=== PATIENT | female | born 1990 | race Caucasian/White ===

== ENCOUNTER → 2016-05-26 | Outpatient (CLI) | payer BC, OTHER ==
[~2016-05-26] MED LIST: FERR325T PO; IBUP-232 PO; PREN29TA PO; SENN1TAB PO
== END ==
LOC: HPND 08:14
PROVIDERS: ATTEND Obstetrics & Gynecology
DX: O35.1XX0 Maternal care for (suspected) chromosomal abnormality in fetus, not applicable or unspecified (principal)
CPT/HCPCS: 76811

== ENCOUNTER → 2016-06-30 | Outpatient (CLI) | payer BC, OTHER | LOC: HPND 08:20 | PROVIDERS: ATTEND Obstetrics & Gynecology | DX: O35.1XX0 Maternal care for (suspected) chromosomal abnormality in fetus, not applicable or unspecified (principal) | CPT/HCPCS: 76816 ==

== ENCOUNTER 2016-07-21 00:23 | Emergency (ER) | payer OTHER ==
--- NOTE | 2016-07-21 01:26 | PD ---
HPI Chief Complaint contractions Date Seen: July 21, 2016 Time Seen: 01:15 Travel History International Travel<30 Days: No Contact w/Intl Traveler<30Days: No Known Affected Area: No History of Present Illness HPI Pt is a 25 y/o G1 with IUP at 40w6d who presents for labor check. pt reports feeling 5 or 6 strong contractions tonight, but has not been timing them. Pt denies vb, lof. + active fetus Para: 0 : 1 History Past Medical History Medical History: Denies Significant Hx Past Surgical History Narrative Surgical benign cyst removed Family History Family History: Negative Social History Alcohol Use: No Tobacco Use: No Substance Abuse: No Allergies-Medications (Allergen,Severity, Reaction): Coded Allergies: No Known Allergies (Unverified , 07/21/16) Narrative Medication PNV iron Review of Systems General / Constitutional: Weight Gain, No: Fever, Weight Loss, Chills, Other Eyes: No: Diploplia, Blurred Vision, Visual changes, Pain, Photophobia, Other HENT: No: Headaches, Vertigo, Dental Difficulties, Lightheadedness, Other Respiratory: No: Cough, Short of Breath, Wheezing, Other Gastrointestinal: Abdominal Pain Genitourinary: No: Urgency, Frequency, Dysuria, Nocturia, Hematuria, Decreased Urinary Output, Oliguria, Hesitancy, Dribbling, Incontinence, Pelvic Pain, Dyspareunia, Discharge, Menorrhagia, Vaginal Bleeding, Other Musculoskeletal: Edema Skin: No Rash, No Itching, No Dryness, No Lumps, No Change in Pigmentation, No Change in Nails, No Alopecia, No Lesions, No Breast Lumps, No Breast Tenderness , No Breast Swelling, No Other Neurologic: No: Weakness, Dizziness, Syncope, Focal Abnormalities, Coordination Problem, Headache, Slurred Speech, Seizures, Other Psychiatric: No: Anxiety, Depression, Suicidal Ideations, Disorder of Thought, Mood Disorder, Substance Abuse, Homicidal Ideation, Other Endocrine: No: Heat Intolerance, Cold Intolerance, Polydipsia, Polyuria, Other Hematologic/Lymphatic: No Easy Bruising, No Lymph Node Enlargement, No Other Physical Exam 115/78, 116, 18, 98.6 Narrative GENERAL: Well-nourished, well-developed patient. SKIN: Warm and dry. HEAD: Normocephalic and atraumatic. EYES: No scleral icterus. No injection or drainage. ENT: No nasal drainage noted. Mucous membranes pink. Airway patent. NECK: Supple, trachea midline. No JVD. CARDIOVASCULAR: Regular rate and rhythm without murmurs, gallops, or rubs. RESPIRATORY: Breath sounds equal bilaterally. No accessory muscle use. ABDOMEN/GI: Abdomen soft, non-tender, bowel sounds present, no rebound, no guarding grvid GENITOURINARY: External Genitalia: intact and normal in appearance cervix 1-2/50/-2 by RN exam Membranes: intact Uterine Contractions: [-] FHT's: Category: [1 ] Baseline: 140 Reactive: yes Variability: mod Decels: no EXTREMITIES: No cyanosis trace pedal edema BACK: Nontender without obvious deformity. No CVA tenderness. NEUROLOGICAL: Awake and alert. Motor and sensory grossly within normal limits. Five out of 5 muscle strength in all muscle groups. Normal speech. Data Data Vital Signs Reviewed: Yes MDM Medical Record Reviewed: Yes Narrative Course / MDM 25 y/o G1 with IUP at 40.6 wks with irregular contractions/false labor labor precautions and [facility]KC to see OB provider tomorrow Diagnosis Diagnosis: Primary Impression: 40 weeks gestation of Additional Impression: False labor after 37 completed weeks of gestation Disposition: DISCHARGE HOME Condition: Stable Ashleigh Carter MD July 21, 2016 01:26
[2016-07-21] MEDS ORDERED: FERR325T PO (12:29)
[2016-07-21] MEDS ORDERED: PREN29TA PO (12:29)
[2016-07-21] MEDS ORDERED: IBUP-232 PO (19:25)
[2016-07-21] MEDS ORDERED: SENN1TAB PO (19:25)
== END 2016-07-21 01:27 | disposition home or self-care (01) ==
LOC: HOBED 00:23
DX: O47.9 False labor, unspecified (principal); Z3A.40 40 weeks gestation of pregnancy
CPT/HCPCS: 59025

== ENCOUNTER 2016-07-21 10:33 | Inpatient (IN) | payer OTHER ==
[2016-07-21] VITALS (49 sets, daily range): BP systolic 73–143; BP diastolic 28–113; PULSE 79–188; RESP 18; TEMP 98–99; O2SAT 99–100
[~2016-07-21] VITALS: Ht 154.9 cm; Wt 79.4 kg
[2016-07-21] MEDS ORDERED: LACTATED RINGER'S 1000 ML INJ 1,000 ML IV PRN (11:08)
--- NOTE | 2016-07-21 11:08 | HHI.HP ---
HPI Chief Complaint Contractions Date Seen: July 21, 2016 Travel History International Travel<30 Days: No Contact w/Intl Traveler<30Days: No Known Affected Area: No History of Present Illness HPI This patient is 25-year-old at 41 weeks tomorrow patient of [address]. You who presents complaining of regular contractions that have increased through the night. Patient was here last evening and was 1-2 cm and 50% and sent home. heart rate tracing is reactive she does have some variable Decels and early decelerations with contractions, she denies leaking or bleeding. Para: 0 : 1 History Past Medical History Medical History: Denies Significant Hx Past Surgical History Surgical History: No Previous Surgery Social History Alcohol Use: No Tobacco Use: No Substance Abuse: No Allergies-Medications (Allergen,Severity, Reaction): Coded Allergies: No Known Allergies (Unverified , 07/21/16) Review of Systems General / Constitutional: No: Fever, Weight Gain, Chills, Other Eyes: No: Diploplia, Blurred Vision, Visual changes, Pain, Photophobia HENT: No: Headaches, Vertigo, Lightheadedness Cardiovascular: No: Irregular Rhythm, Chest Pain or Discomfort, Palpitations, Tachycardia, Syncope, Varicosities, Edema, Cyanosis Respiratory: No: Cough, Short of Breath, Other Gastrointestinal: Abdominal Pain, No: Nausea, Vomiting, Diarrhea Genitourinary: No: Decreased Urinary Output, Oliguria Musculoskeletal: No: Limited ROM, Weakness, Cramping, Edema, Pain Skin: No Rash, No Itching, No Dryness, No Lumps, No Change in Pigmentation, No Change in Nails, No Alopecia, No Lesions Neurologic: No: Weakness, Dizziness, Syncope, Focal Abnormalities, Coordination Problem, Headache, Slurred Speech, Seizures Psychiatric: No: Depression, Suicidal Ideations, Homicidal Ideation Endocrine: No: Heat Intolerance, Cold Intolerance, Polydipsia, Polyuria, Other Physical Exam Narrative GENERAL: Well-nourished, well-developed patient. SKIN: Warm and dry. HEAD: Normocephalic and atraumatic. EYES: No scleral icterus. No injection or drainage. ENT: No nasal drainage noted. Mucous membranes pink. Airway patent. NECK: Supple, trachea midline. No JVD. CARDIOVASCULAR: Regular rate and rhythm without murmurs, gallops, or rubs. RESPIRATORY: Breath sounds equal bilaterally. No accessory muscle use. BREASTS: Bilateral exam showed no masses , no retractions, no nipple discharge. ABDOMEN/GI: Abdomen soft, non-tender, bowel sounds present, no rebound, no guarding Gravid to [-40] weeks size Fundal Height: [-40] GENITOURINARY: External Genitalia: intact and normal in appearance BUS glands: [-] Cervix: [-] Dilatation: [5-] Effacement: [90-] Station: [-3] Presentation: [-vtx] Membranes: [intact ] Uterine Contractions: [-reg] FHT's: Category: [1-] Baseline: [-133] Reactive: [yes-] Variability: [mod-] Decels: [Positive variables and earlys-] EXTREMITIES: No cyanosis or edema. BACK: Nontender without obvious deformity. No CVA tenderness. NEUROLOGICAL: Awake and alert. Motor and sensory grossly within normal limits. Five out of 5 muscle strength in all muscle groups. Normal speech. Assessment/Plan Assessment and Plan This patient is a 25-year-old at [address] Barksdale presents with regular contractions early labor. Membranes intact she has no bleeding heart rate tracing is reactive and she is bry regularly. She has occasional variable and early deceleration with contractions but no late decelerations or ominous signs, variability is very good. Her cervix is 5 cm 90% -3 posterior with cephalic presentation. Plan to admit the patient for labor and contact her OB doctor and anticipate vaginal delivery. Jeramy Hazel II, MD July 21, 2016 11:08
[2016-07-21] MEDS ORDERED: SODIUM CHLORID 0.9% 500 ML INJ 500 ML IV PRN (11:15)
[2016-07-21] MEDS ORDERED: MINERAL OIL 10 ML VIAL TOPICAL PRN (11:15)
[2016-07-21] MEDS ORDERED: OXYTOCIN 30 UNITS-500ML PREMIX 500 ML IV ONE (11:15)
[2016-07-21] MEDS ORDERED: LIDOCAINE HCL 1% 50 ML VIAL I-DERMAL PRN (11:15)
[2016-07-21] MEDS ORDERED: CITRIC ACID-SODIUM CITRATE LIQ 30 ML UDC PO SCH (11:15)
[2016-07-21] MEDS ORDERED: LIDOCAINE HCL 1% 50 ML VIAL INFIL PRN (11:15)
[2016-07-21] MEDS ORDERED: SODIUM CHLOR 0.9% 1000 ML INJ 1,000 ML IV PRN (11:28)
[2016-07-21] MEDS ORDERED: FERR325T PO (12:29)
[2016-07-21] MEDS ORDERED: PREN29TA PO (12:29)
[2016-07-21 12:36] LABS: BACTERIA, URINE RARE /hpf; BLOOD, URINE TRACE (NEG); COMMENT (UR) CULT NOT INDICATED; CULTURE IF INDICATED CULT NOT INDICATED; GLUCOSE,URINE NEG (NEG); KETONE, URINE NEG (NEG); NITRITE,URINE NEG (NEG); PH, URINE 6.5 (5.0-8.5); SQUAMOUS EPITHELIAL CELL URINE 1 /hpf (0-5); URINE COLOR LIGHT-YELLOW (YELLW/STRAW)
[2016-07-21 12:43] LABS: BASOPHIL % 0.4 % (0.0-2.0); EOSINOPHIL # 0.1 TH/MM3 (0-0.4); EOSINOPHIL % 0.6 % (0.0-4.0); HEMATOCRIT 35.2 % (35.0-46.0); HEMO FLAGS DIFF FINAL; LYMPH % 15.3 % (9.0-44.0); LYMPHOCYTE # 1.8 TH/MM3 (1.0-4.8); MEAN CELL VOLUME 88.3 FL (80.0-100.0); MEAN CORPUSCULAR HEMOGLOBIN 30.8 PG (27.0-34.0); MEAN CORPUSCULAR HGB CONC 34.9 % (32.0-36.0); MONO % 5.7 % (0.0-8.0); PLATELET COUNT 193 TH/MM3 (150-450); RED BLOOD COUNT 3.99 MIL/MM3 (4.00-5.30); RED CELL DISTRIBUTION WIDTH 14.7 % (11.6-17.2); WHITE BLOOD COUNT 11.5 TH/MM3 (4.0-11.0)
[2016-07-21] MEDS ORDERED: OXYTOCIN 30 UNITS-500ML PREMIX 500 ML IV SCH (12:45)
[2016-07-21] MEDS: LACTATED RINGER'S 1000 ML INJ 1,000 ML IV SCH ×2 (13:59→17:41)
[2016-07-21] MEDS ORDERED: fentaNYL 2MCG-BUPIV 0.125% INJ 100 ML ONE (14:10)
[2016-07-21] MEDS ORDERED: ePHEDrine/NS 25 MG/5 ML SYR ONE (14:11)
--- NOTE | 2016-07-21 19:24 | PD.OB.DELI ---
Delivery Date: July 21, 2016 Anesthesia: Epidural Episiotomy: None Vaginal Delivery: Normal, Spontaneous Presentation: Occiput anterior Nuchal Cord: x1 (reduced at perineum; nuchal x 1) Delayed cord clamping (45 sec): No (meconium; cord clamped & cut & infant to warmer with nursery staff) : Male One Minute : 8 Five Minute : 9 Weight: 7#3oz Placenta: Spontaneous delivery, Intact, 3 vessel cord Laceration: Perineal laceration, 2 deg Repair: Chromic running Additional Information EBL 300 mL healthy male "Prosper" NOT for circ Adri Burrell MD July 21, 2016 19:24
[2016-07-21] MEDS ORDERED: IBUP-232 PO (19:25)
[2016-07-21] MEDS ORDERED: SENN1TAB PO (19:25)
--- NOTE | 2016-07-21 19:26 | HHI.DCPOC ---
Discharge Care Plan Diagnosis: (1) (spontaneous vaginal delivery) Your Health Problems Are: Vaginal delivery Report Symptoms to Your Doctor -Temperate above 100.5 degrees -Redness, of incision or excessive or foul smelling drainage -Unusual pain or calf pain -Increased vaginal bleeding -Painful or difficulty urinating -Feelings of extreme sadness or anxiety after 2 weeks Goals to Promote Your Health * To prevent worsening of your condition and complications * To maintain your health at the optimal level Directions to Meet Your Goals Take your medications as prescribed Follow your dietary instruction Follow activity as directed Ensure plenty of rest for recovery Drink fluids for hydration Keep your appointments as scheduled Take your immunizations and boosters as scheduled If your symptoms worsen call your PCP, if no PCP go to Urgent Care Center or Emergency Room Smoking is Dangerous to Your Health. Avoid second hand smoke Call the 24-hour crisis hotline for domestic abuse at Adri Burrell MD July 21, 2016 19:26
[2016-07-21] MEDS ORDERED: ACETAMINOPHEN 325 MG TAB PO PRN (19:30)
[2016-07-21] MEDS ORDERED: ZOLPIDEM TARTRATE 5 MG TAB PO PRN (19:30)
[2016-07-21] MEDS ORDERED: ONDANSETRON ODT 4 MG TAB PO PRN (19:30)
[2016-07-21] MEDS ORDERED: BENZOCAINE 20% TOPICAL SPRAY 60 ML CAN TOPICAL PRN (19:30)
[2016-07-21] MEDS ORDERED: SODIUM CHLORIDE 0.9% FLUSH 10 ML FLUSH IV FLUSH PRN (19:30)
[2016-07-21] MEDS ORDERED: ALUMINUM/MAGNESIUM/SIMETH 30 ML CUP PO PRN (19:30)
[2016-07-21] MEDS ORDERED: oxyCODONE/ACETAMINOPHEN 5 MG/325 MG TAB PO PRN ×2 (19:30)
[2016-07-21] MEDS ORDERED: DIPHTH/TETANUS/ACEL PERTUSSIS (BOOSTER) 0.5 ML VIAL/PFS IM ONE (20:00)
[2016-07-21] MEDS ORDERED: MEASLES, MUMPS, RUBELLA VACCINE 0.5 ML VIAL SQ ONE (20:00)
[2016-07-21] MEDS ORDERED: SODIUM CHLORIDE 0.9% FLUSH 10 ML FLUSH IV FLUSH SCH (21:00)
[2016-07-21] MEDS ORDERED: DOCUSATE SODIUM 50 MG/SENNA 8.6 MG TAB PO SCH (21:30)
[2016-07-22 00:30] VITALS: BP 111/70; PULSE 106; RESP 20; TEMP 98.4
[2016-07-22] MEDS: WITCH HAZEL 50%/GLYCERIN 12.5% 40 PAD JAR TOPICAL PRN (00:50)
[2016-07-22] MEDS: IBUPROFEN 600 MG TAB PO PRN ×4 (00:51→23:22)
[2016-07-22 08:00] VITALS: BP 97/62; PULSE 88; RESP 17; TEMP 98.7
--- NOTE | 2016-07-22 10:41 | HHI.OB ---
Subjective Post Day: 1 Remarks PPD#1, Stable,no significant c/o Objective Vitals/I&O Vital Signs Date Time Temp Pulse Resp B/P Pulse Ox O2 Delivery O2 Flow Rate FiO2 07/22/16 08:00 88 17 97/62 07/22/16 08:00 98.7 07/22/16 00:30 111/70 07/22/16 00:30 98.4 106 20 07/21/16 21:30 99.0 07/21/16 20:52 124 112/73 07/21/16 19:31 111 117/83 07/21/16 19:15 98.0 07/21/16 19:00 149 100 07/21/16 18:40 156 99 07/21/16 18:30 166 125/93 07/21/16 18:04 109/57 07/21/16 18:04 133 07/21/16 18:02 132 07/21/16 17:42 16 07/21/16 17:30 122 126/95 07/21/16 17:01 98.0 18 07/21/16 17:00 109 115/86 07/21/16 16:40 94 07/21/16 16:35 92 07/21/16 16:30 92 113/59 07/21/16 16:30 92 07/21/16 16:20 98 07/21/16 16:15 93 112/47 07/21/16 16:15 94 07/21/16 15:39 122 143/113 07/21/16 15:38 88 143/105 07/21/16 15:35 101 07/21/16 15:31 188 76/48 07/21/16 15:30 103 07/21/16 15:25 96 07/21/16 15:21 95 83/58 07/21/16 15:20 100 07/21/16 15:19 98.3 07/21/16 15:16 120 89/62 07/21/16 15:15 104 07/21/16 15:12 73/50 07/21/16 15:11 124 85/28 07/21/16 15:10 104 07/21/16 15:06 147 95/43 07/21/16 15:05 115 07/21/16 15:01 79 107/76 07/21/16 15:00 105 07/21/16 14:56 103/51 07/21/16 14:56 95 07/21/16 14:55 91 07/21/16 14:52 98.6 18 07/21/16 14:50 97 07/21/16 14:50 101 117/64 99 07/21/16 14:46 103 118/78 07/21/16 14:45 96 100 07/21/16 14:40 106 100 07/21/16 14:35 113 99 07/21/16 14:30 97 100 07/21/16 14:25 100 100 07/21/16 14:08 109 111/74 07/21/16 12:50 95 124/68 07/21/16 12:37 98.1 18 07/21/16 11:57 88 123/78 Objective Remarks GENERAL: Well-nourished, well-developed patient. CARDIOVASCULAR: Regular rate and rhythm without murmurs, gallops, or rubs. RESPIRATORY: Breath sounds equal bilaterally. No accessory muscle use. ABDOMEN/GI: Abdomen soft, non-tender. Fundus: Firm, non-tender at umbilicus. GENITOURINARY: Light to moderate bleeding. EXTREMITIES: No cyanosis or edema, non-tender, without signs of DVT. Medications and IVs Current Medications Medications (Trade) Dose Ordered Sig/Torres Route Start Time Stop Time Status Last Admin (NS Flush) 2 ml BID IV FLUSH 07/21/16 21:00 (NS Flush) 2 ml UNSCH PRN IV FLUSH 07/21/16 19:30 (Tylenol) 650 mg Q4H PRN PO 07/21/16 19:30 (Motrin) 600 mg Q6H PRN PO 07/21/16 19:30 07/22/16 07:22 (Percocet 5-325 Mg) 1 tab Q4H PRN PO 07/21/16 19:30 (Percocet 5-325 Mg) 2 tab Q4H PRN PO 07/21/16 19:30 (Americaine 20% Top Spr) 1 spray Q4H PRN TOPICAL 07/21/16 19:30 07/22/16 00:50 (Tucks Pads) 1 applic QID PRN TOPICAL 07/21/16 19:30 07/22/16 00:50 (Carine-Colace) 2 tab Q12HR PO 07/21/16 21:30 07/22/16 07:22 (Ambien) 5 mg HS PRN PO 07/21/16 19:30 (Mag-Al Plus Susp Liq) 15 ml Q8H PRN PO 07/21/16 19:30 (Zofran Odt) 4 mg Q6H PRN PO 07/21/16 19:30 Assessment/Plan Assessment and Plan PPD#1, transitioning well. Plan discharge for tomorrow Discharge Planning Routine Attending Attestation seen by Trace James MD July 22, 2016 10:41
[2016-07-22 21:00] VITALS: BP 102/72; PULSE 111; RESP 18; TEMP 98.4
[2016-07-23] MEDS: IBUPROFEN 600 MG TAB PO PRN ×3 (04:56→18:18)
[2016-07-23 08:00] VITALS: BP 110/68; PULSE 88; RESP 16; TEMP 98.2
--- NOTE | 2016-07-23 08:19 | HHI.OB ---
Subjective Post Day: 1 Remarks mod lochia, min cramping breast feeding, baby doing well Objective Vitals/I&O Vital Signs Date Time Temp Pulse Resp B/P Pulse Ox O2 Delivery O2 Flow Rate FiO2 07/22/16 21:00 98.4 111 18 102/72 Objective Remarks GENERAL: Well-nourished, well-developed patient. CARDIOVASCULAR: Regular rate and rhythm without murmurs, gallops, or rubs. RESPIRATORY: Breath sounds equal bilaterally. No accessory muscle use. ABDOMEN/GI: Abdomen soft, non-tender. Fundus: Firm, non-tender at umbilicus. GENITOURINARY: Light to moderate bleeding. EXTREMITIES: No cyanosis or edema, non-tender, without signs of DVT. Medications and IVs Current Medications Medications (Trade) Dose Ordered Sig/Torres Route Start Time Stop Time Status Last Admin (NS Flush) 2 ml BID IV FLUSH 07/21/16 21:00 (NS Flush) 2 ml UNSCH PRN IV FLUSH 07/21/16 19:30 (Tylenol) 650 mg Q4H PRN PO 07/21/16 19:30 (Motrin) 600 mg Q6H PRN PO 07/21/16 19:30 07/23/16 04:56 (Percocet 5-325 Mg) 1 tab Q4H PRN PO 07/21/16 19:30 (Percocet 5-325 Mg) 2 tab Q4H PRN PO 07/21/16 19:30 (Americaine 20% Top Spr) 1 spray Q4H PRN TOPICAL 07/21/16 19:30 07/22/16 00:50 (Tucks Pads) 1 applic QID PRN TOPICAL 07/21/16 19:30 07/22/16 00:50 (Carine-Colace) 2 tab Q12HR PO 07/21/16 21:30 07/22/16 07:22 (Ambien) 5 mg HS PRN PO 07/21/16 19:30 (Mag-Al Plus Susp Liq) 15 ml Q8H PRN PO 07/21/16 19:30 (Zofran Odt) 4 mg Q6H PRN PO 07/21/16 19:30 Assessment/Plan Assessment and Plan PPD#2, transitioning well. Plan discharge today Discharge Planning Routine Adenike Barksdale MD July 23, 2016 08:19
[2016-07-23] MEDS: WITCH HAZEL 50%/GLYCERIN 12.5% 40 PAD JAR TOPICAL PRN (12:11)
== END 2016-07-23 19:05 | disposition home or self-care (01) | DRG 775 ==
LOC: HOBED 10:33 → H2EB 11:24 → H1EA 21:15
PROVIDERS: ADMIT Obstetrics & Gynecology; ATTEND Obstetrics & Gynecology
PROC: 10E0XZZ Delivery of Products of Conception, External Approach (ICD-10-PCS; principal; 2016-07-21)
PROC: 0KQM0ZZ Repair Perineum Muscle, Open Approach (ICD-10-PCS; 2016-07-21)
PROC: 3E0S3CZ (ICD-10-PCS; 2016-07-21)
PROC: 00HU33Z Insertion of Infusion Device into Spinal Canal, Percutaneous Approach (ICD-10-PCS; 2016-07-21)
DX: O70.1 Second degree perineal laceration during delivery (principal); O69.81X0 Labor and delivery complicated by cord around neck, without compression, not applicable or unspecified; Z37.0 Single live birth; Z3A.40 40 weeks gestation of pregnancy
CPT/HCPCS: 81001; 85025; 86900; 86901; 99285; J2590; J7120